=== PATIENT | female | born 1980 | race Caucasian/White ===

== ENCOUNTER → 2019-10-17 | Outpatient (CLI) | payer OTHER | LOC: MAMMO 09:26 | PROVIDERS: ATTEND Internal Medicine | DX: Z12.31 Encounter for screening mammogram for malignant neoplasm of breast (principal) | CPT/HCPCS: 77067 ==

== ENCOUNTER → 2019-11-12 | Outpatient (CLI) | payer MEDICARE, OTHER ==
--- NOTE | 2019-11-13 10:19 | Diagnostic Imaging Report ---
#[id number] - MGDXBIL #BILATERAL DIGITAL DIAGNOSTIC MAMMOGRAM WITH SPOT COMPRESSION: 11/12/2019 Comparison is made to exam dated: 10/17/2019 mammogram - [facility]. Current study contains 6 films. The tissue of both breasts is heterogeneously dense. This may lower the sensitivity of mammography. Additional views demonstrate no visible abnormality. Ultrasound was performed afterwards due to density of the breasts. No significant masses, calcifications, or other findings are seen in either breast. IMPRESSION: INCOMPLETE: NEEDS ADDITIONAL IMAGING EVALUATION See the report for ultrasound performed the same day for additional details. LINDSEY HEIN M.D. ct/:11/12/2019 15:23:36 Filter Press Operator: Lin CHRISTINE(R)(M), [facility] Mammogram BI-RADS: 0 Indeterminate
--- NOTE | 2019-11-13 10:19 | Diagnostic Imaging Report ---
#[id number] - USBRELIMLT ULTRASOUND OF THE LEFT BREAST : 11/12/2019 Comparison is made to exams dated: 11/12/2019 mammogram and 10/17/2019 mammogram - [facility]. Real-time ultrasound was performed on the left breast. There is a 1 cm oval mass with a lobulated margin in the left breast at 9 o'clock anterior depth. This oval mass is hypoechoic with possible mild shadowing. IMPRESSION: SUSPICIOUS OF MALIGNANCY - FOLLOW-UP RECOMMENDED The 1 cm oval mass in the left breast is at a low suspicion for malignancy. A phone call was made to the physician's office. The findings were discussed with the patient. LINDSEY HEIN M.D. ct/:11/12/2019 15:34:43 Barrel Raiser Helper: Jamil Gabriel RDMA, [facility] letter sent: Biopsy Required Ultrasound BI-RADS: 4a Suspicious abnormality - low suspicion for malignancy
--- NOTE | 2019-11-13 10:20 | Diagnostic Imaging Report ---
#[id number] - USBRELIMRT ULTRASOUND OF THE RIGHT BREAST : 11/12/2019 Comparison is made to exams dated: 11/12/2019 mammogram and 10/17/2019 mammogram - [facility]. Real-time ultrasound was performed on the right breast. There is a 6 mm oval mass with a circumscribed margin in the right breast at 11 o'clock anterior depth. This oval mass is hypoechoic. No other masses identified. IMPRESSION: PROBABLY BENIGN - FOLLOW-UP RECOMMENDED The 6 mm oval mass in the right breast is probably benign. A follow-up ultrasound in 6 months is recommended to demonstrate stability. The findings were discussed with the patient. LINDSEY HEIN M.D. ct/:11/12/2019 15:25:50 Cage Tender: Jamil Gabriel [facility], [facility] letter sent: Followup Recommended Ultrasound BI-RADS: 3 Probably benign
== END ==
LOC: MAMMO 12:56
PROVIDERS: ATTEND Internal Medicine
DX: N64.89 Other specified disorders of breast (principal)
CPT/HCPCS: 77066

== ENCOUNTER → 2020-05-11 | Outpatient (CLI) | payer OTHER | LOC: MAMMO 09:39 | PROVIDERS: ATTEND Internal Medicine | DX: N63.20 Unspecified lump in the left breast, unspecified quadrant (principal) | CPT/HCPCS: 77066 ==

== ENCOUNTER → 2021-09-22 | Outpatient (CLI) | payer OTHER | LOC: MAMMO 11:55 | PROVIDERS: ATTEND Internal Medicine | DX: N64.4 Mastodynia (principal) | CPT/HCPCS: 77066 ==

== ENCOUNTER → 2022-09-25 | Outpatient (CLI) | payer OTHER | LOC: MAMMO 10:57 | PROVIDERS: ATTEND Internal Medicine | DX: Z12.31 Encounter for screening mammogram for malignant neoplasm of breast (principal) | CPT/HCPCS: 77067 ==